=== PATIENT | male | born 1970 | race Caucasian/White ===

== ENCOUNTER 2018-03-19 15:58 | Emergency (ER) | payer OTHER ==
[2018-03-19 16:06] VITALS: BP 122/99
[2018-03-19] MEDS ORDERED: IBUPROFEN 800 MG TABLET PO STA (16:06)
--- NOTE | 2018-03-19 16:13 | ED Physician Documentation ---
PD HPI MAJOR TRAUMA - Stated complaint Stated Complaint: R SIDE PX/FALL - Chief complaint Chief Complaint: Trauma Ch/Bk - History obtained from History obtained from: Patient - History of Present Illness Mechanism of injury: Fell (He had a trip and fall on an unequal sidewalk and rolled to the left and hit his right ribs and also has neck pain although did not hit his neck. The worst spot is the anterior right ribs low down. There is no shortness of breath or head injury.) Review of Systems Constitutional: denies: Fever, Chills Cardiac: denies: Pedal edema, Calf pain Respiratory: denies: Dyspnea, Cough GI: denies: Abdominal Pain PD PAST MEDICAL HISTORY - Present Medications Home Medications: Ambulatory Orders Medication Instructions Recorded Confirmed Ibuprofen [Motrin] 800 mg PO Q8H PRN #30 tablet 03/19/18 Melatonin 5 mg ORAL DAILY PM 03/19/18 03/19/18 - Allergies Allergies/Adverse Reactions: Allergies Allergy/AdvReac Type Severity Reaction Status Date / Time No Known Drug Allergies Allergy Verified 03/19/18 16:05 PD ED PE NORMAL - Vitals Vital signs reviewed: Yes - General General: Alert and oriented X 3, No acute distress - Neck Neck: Supple, no meningeal sign, No bony TTP - Cardiac Cardiac: RRR, No murmur - Respiratory Respiratory: No respiratory distress, Clear bilaterally, Other (Maximal tenderness is around rib 8 anterior axillary line, no bruising.) - Abdomen Abdomen: Soft, Non tender - Extremities Extremities: No deformity, No tenderness to palpate, Normal ROM s pain - Neuro Neuro: Alert and oriented X 3, Normal speech - Psych Psych: Normal mood, Normal affect Results - Vitals Vitals: Vital Signs - 24 hr 03/19/18 16:02 Temperature 36.4 C L Heart Rate 67 Respiratory 18 Rate Blood Pressure 122/99 H O2 Saturation 98 Oxygen O2 Source Room air - Rads (name of study) Cerivcal Spine and R Rib XRs Radiology: EMP read contemporaneously (normal) PD MEDICAL DECISION MAKING - Sepsis Event Vital Signs: Vital Signs - 24 hr 03/19/18 16:02 Temperature 36.4 C L Heart Rate 67 Respiratory 18 Rate Blood Pressure 122/99 H O2 Saturation 98 Oxygen O2 Source Room air Departure - Departure Disposition: 01 Home, Self Care Clinical Impression: Contusion of chest wall Qualifiers: Encounter type: initial encounter Laterality: right Qualified Code(s): S20.211A - Contusion of right front wall of thorax, initial encounter Condition: Good Record reviewed to determine appropriate education?: Yes Instructions: ED Contusion Chest Wall Prescriptions: Ibuprofen [Motrin] 800 mg PO Q8H PRN #30 tablet PRN Reason: PAIN &/OR FEVER Comments: Your blood pressure was elevated today on check into the emergency department. This does not mean that you have hypertension, it is a common phenomenon to come to the emergency department and have elevated blood pressure. I recommend that you see your primary care physician within the week to have it rechecked when you are feeling better.
--- NOTE | 2018-03-19 17:02 | XRAY Report ---
Procedure Date: 03/19/2018 Accession Number: [id number] / [id number] Procedure: XR - Cervical Spine 2 View CPT Code: FULL RESULT: EXAM: CERVICAL SPINE RADIOGRAPHY EXAM DATE: 03/19/2018 04:50 PM. CLINICAL HISTORY: Fall, right rib and neck pain. COMPARISONS: None. TECHNIQUE: 3 views. FINDINGS: Alignment: Normal. No spondylolisthesis or scoliosis. Bones: The cervical vertebral bodies and posterior elements are well visualized from the skull base through C7-T1. No fractures or bone lesions. Disks: Normal. Disk heights are maintained. Facets: No degenerative disease. Soft Tissues: Normal. No prevertebral soft tissue swelling. The visualized lung apices are clear. IMPRESSION: Normal cervical spine radiography. [facility]
--- NOTE | 2018-03-19 17:02 | XRAY Report ---
Procedure Date: 03/19/2018 Accession Number: [id number] / [id number] Procedure: XR - Ribs w/PA Chest RT CPT Code: FULL RESULT: EXAM: RIGHT RIB RADIOGRAPHY EXAM DATE: 03/19/2018 04:50 PM. CLINICAL HISTORY: Fall, right rib and neck pain. COMPARISON: None. TECHNIQUE: 1 view of the chest and 2 views of the ribs. FINDINGS: Bones: Normal. No fracture or bone lesion. Lungs: No focal opacities. No pneumothorax. No pleural effusions. Mediastinum: Heart and mediastinal contours are unremarkable. Other: None. IMPRESSION: Normal chest and rib radiography. [facility]
== END 2018-03-19 17:28 | disposition home or self-care (01) ==
LOC: ED 15:58
DX: S20.211A Contusion of right front wall of thorax, initial encounter (principal); W01.0XXA Fall on same level from slipping, tripping and stumbling without subsequent striking against object, initial encounter
CPT/HCPCS: 71101; 72040; 99283; A9270

== ENCOUNTER 2018-07-01 21:25 | Outpatient (CLI) | payer OTHER | END 2018-07-01 21:26 | disposition critical access hospital (66) | LOC: EMS 21:25 | PROVIDERS: ATTEND Surgery | DX: S06.9X9A Unspecified intracranial injury with loss of consciousness of unspecified duration, initial encounter (principal); W10.8XXA Fall (on) (from) other stairs and steps, initial encounter; Y92.009 Unspecified place in unspecified non-institutional (private) residence as the place of occurrence of the external cause | CPT/HCPCS: A0425; A0427 ==

== ENCOUNTER 2018-07-01 21:44 | Emergency (ER) | payer OTHER ==
[2018-07-01 22:10] LABS: BASOPHILS % (AUTO) 0.4 %; EOSINOPHILS # (AUTO) 0.2 10^3/uL (0.0-0.7); EOSINOPHILS % (AUTO) 3.8 %; HGB - HEMOGLOBIN 14.1 g/dL (14.0-18.0); LYMPHOCYTES # (AUTO) 2.8 10^3/uL (1.5-3.5); LYMPHOCYTES % (AUTO) 43.9 %; MEAN CORPUSCULAR HEMOGLOBIN 30.5 pg (27.0-31.0); MEAN CORPUSCULAR HGB CONC 33.2 g/dL (32.0-36.0); MEAN CORPUSCULAR VOLUME 91.8 fL (80.0-94.0); MEAN PLATELET VOLUME 8.6 fL (7.4-11.4); MONOCYTES # (AUTO) 0.5 10^3/uL (0.0-1.0); MONOCYTES % (AUTO) 7.7 %; NEUTROPHILS # (AUTO) 2.8 10^3/uL (1.5-6.6); NEUTROPHILS % (AUTO) 44.2 %; PLT - PLATELET COUNT 194 10^3/uL (130-450); RED BLOOD COUNT 4.63 10^6/uL (4.70-6.10); RED CELL DISTRIBUTION WIDTH 14.2 % (12.0-15.0); WHITE BLOOD COUNT 6.3 x10^3/uL (4.8-10.8)
[2018-07-01 22:16] LABS: PT - PROTHROMBIN TIME 11.5 secs (9.9-12.6)
[2018-07-01 22:23] LABS: ALBUMIN 4.2 g/dL (3.2-5.5); ALBUMIN/GLOBULIN RATIO 1.3 (1.0-2.2); BILIRUBIN,TOTAL 0.7 mg/dL (0.2-1.0); CALCIUM 8.7 mg/dL (8.5-10.3); CREATININE 0.8 mg/dL (0.6-1.2); TOTAL PROTEIN 7.4 g/dL (6.7-8.2)
[2018-07-01 22:27] LABS: TROPONIN I < 0.04 ng/mL (<0.49)
[2018-07-01 22:29] LABS: CREATINE KINASE MB 7.6 ng/mL (0.6-6.3)
--- NOTE | 2018-07-01 22:34 | ED Physician Documentation ---
PD HPI HEAD INJURY - Stated complaint Stated Complaint: ETOH, FELL, LOC, CPR BY BYSTANDER - Chief complaint Chief Complaint: Trauma Hd/Nk - History obtained from History obtained from: Patient, Family, EMS - History of Present Illness Mechanism of head injury: Fell Where head injury occurred: Home Timing - onset: Today Location of injury: Right, Back Quality of pain: Pain, Throbbing, Aching Associated symptoms: LOC (up to 10 minutes), AMS, Amnesia. No: Nausea / vomiting, Neck pain, Paresthesias, Seizures, Ear drainage, Nasal drainage Symptoms improve with: Rest Symptoms worsen with: Palpation, Movement Contributing factors: Intoxicated. No: Anticoagulated Similar symptoms before: Has not had sx before Recently seen: Not recently seen - Additional information Additional information: Previously well 48-year-old male who drinks usually on Friday nights does not have to work tomorrow and he was drinking this evening. His states that he drinks fairly heavily when he drinks he will have an altered level of consciousness. She states that she was with him in their 7-year-old room and he left to go to the bathroom and then he walked outside. She states that shortly after that her 8-year-old son came inside stating that his father had fallen and she came out to see him unconscious. She was able to palpate a faint carotid pulse and she was not able to wake him up. A neighbor came over and started CPR. He got about 30 compressions in and went to give a rescue breath and the patient blew back in his face. He became awake and animated. The patient has not had any repetitive amnesia in route to the hospital. He does have poor eye contact and minimal interaction. His indicates that this is typical for him when he is intoxicated. Review of Systems Constitutional: denies: Fever Eyes: denies: Decreased vision Ears: denies: Ear pain Nose: denies: Rhinorrhea / runny nose, Congestion Throat: denies: Sore throat Cardiac: denies: Chest pain / pressure, Palpitations Respiratory: denies: Dyspnea, Cough GI: denies: Abdominal Pain, Nausea, Vomiting : denies: Dysuria, Frequency Skin: denies: Rash Musculoskeletal: reports: Extremity pain. denies: Neck pain, Back pain Neurologic: reports: Confused, Altered mental status, Head injury, LOC. denies: Generalized weakness, Focal weakness, Numbness, Difficulty speaking PD PAST MEDICAL HISTORY - Past Surgical History Past Surgical History: Yes Ortho: Spine surgery - Present Medications Home Medications: Ambulatory Orders Medication Instructions Recorded Confirmed Ibuprofen [Motrin] 800 mg PO Q8H PRN #30 tablet 03/19/18 07/01/18 Melatonin 5 mg ORAL DAILY PM 03/19/18 07/01/18 - Allergies Allergies/Adverse Reactions: Allergies Allergy/AdvReac Type Severity Reaction Status Date / Time No Known Drug Allergies Allergy Verified 03/19/18 16:05 - Social History Does the pt smoke?: Yes Smoking Status: Current every day smoker Does the pt drink ETOH?: Yes Does the pt have substance abuse?: No - Immunizations Immunizations are current?: Yes - POLST Patient has POLST: No PD ED PE NORMAL - Vitals Vital signs reviewed: Yes (diastolic hypertension mild ) - General General: No acute distress, Well developed/nourished, Other (The patient is interactive, makes poor eye contact and does not offer more. 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, No motor deficit, No sensory deficit, Normal speech Eye Opening: Spontaneous Motor: Obeys Commands Verbal: Confused GCS Score: 14 - Psych Psych: Other (affect is flat mood is tearful ) Results - Vitals Vitals: Vital Signs - 24 hr 07/01/18 07/01/18 07/01/18 21:49 22:52 23:10 Temperature 36 C L Heart Rate 86 81 80 Respiratory 23 14 18 Rate Blood Pressure 125/81 H 105/76 102/74 O2 Saturation 100 99 98 07/02/18 00:45 Temperature Heart Rate 78 Respiratory 18 Rate Blood Pressure 94/64 O2 Saturation 96 Oxygen O2 Source Room air - Labs Labs: Laboratory Tests 07/01/18 07/01/18 07/01/18 10:00 10:00 10:00 WBC 6.3 RBC 4.63 L Hgb 14.1 Hct 42.5 MCV 91.8 MCH 30.5 MCHC 33.2 RDW 14.2 Plt Count 194 MPV 8.6 Neut # (Auto) 2.8 Lymph # (Auto) 2.8 [place] # (Auto) 0.5 Eos # (Auto) 0.2 Baso # (Auto) 0.0 Absolute Nucleated RBC 0.01 Nucleated RBC % 0.1 PT 11.5 INR 1.0 Sodium 143 Potassium 3.5 Chloride 103 Carbon Dioxide 27 Anion Gap 13.0 BUN 9 Creatinine 0.8 Estimated GFR (MDRD) 103 Glucose 106 H Calcium 8.7 Total Bilirubin 0.7 AST 35 ALT 50 Alkaline Phosphatase 77 Total Creatine Kinase 333 H CK-MB (CK-2) Troponin I Total Protein 7.4 Albumin 4.2 Globulin 3.2 Albumin/Globulin Ratio 1.3 Lipase 49 Urine Color Urine Clarity Urine pH Ur Specific [place] Urine Protein Urine Glucose (UA) Urine Ketones Urine Occult Blood Urine Nitrite Urine Bilirubin Urine Urobilinogen Ur Leukocyte Esterase Ur Microscopic Review Urine Culture Comments Urine Opiates Screen Ur Oxycodone Screen Urine Methadone Screen Ur Propoxyphene Screen Ur Barbiturates Screen Ur Tricyclics Screen Ur Phencyclidine Scrn Ur Amphetamine Screen U Methamphetamines Scrn U Benzodiazepines Scrn Urine Cocaine Screen U Cannabinoids Screen Ethyl Alcohol 265.2 07/01/18 07/01/18 07/01/18 10:00 23:45 23:45 WBC RBC Hgb Hct MCV MCH MCHC RDW Plt Count MPV Neut # (Auto) Lymph # (Auto) [place] # (Auto) Eos # (Auto) Baso # (Auto) Absolute Nucleated RBC Nucleated RBC % PT INR Sodium Potassium Chloride Carbon Dioxide Anion Gap BUN Creatinine Estimated GFR (MDRD) Glucose Calcium Total Bilirubin AST ALT Alkaline Phosphatase Total Creatine Kinase CK-MB (CK-2) 7.6 H Troponin I < 0.04 Total Protein Albumin Globulin Albumin/Globulin Ratio Lipase Urine Color YELLOW Urine Clarity CLEAR Urine pH 6.0 Ur Specific [place] 1.010 Urine Protein NEGATIVE Urine Glucose (UA) NEGATIVE Urine Ketones NEGATIVE Urine Occult Blood NEGATIVE Urine Nitrite NEGATIVE Urine Bilirubin NEGATIVE Urine Urobilinogen 0.2 (NORMAL) Ur Leukocyte Esterase NEGATIVE Ur Microscopic Review NOT INDICATED Urine Culture Comments NOT INDICATED Urine Opiates Screen NEGATIVE Ur Oxycodone Screen NEGATIVE Urine Methadone Screen NEGATIVE Ur Propoxyphene Screen NEGATIVE Ur Barbiturates Screen NEGATIVE Ur Tricyclics Screen NEGATIVE Ur Phencyclidine Scrn NEGATIVE Ur Amphetamine Screen NEGATIVE U Methamphetamines Scrn NEGATIVE U Benzodiazepines Scrn NEGATIVE Urine Cocaine Screen NEGATIVE U Cannabinoids Screen NEGATIVE Ethyl Alcohol - Rads (name of study) CT head without Radiology: Prelim report reviewed (Impression: 1. Small volume central subarachnoid hemorrhage. 2. Possible small focus of left anterior tentorial subdural hemorrhage. 3. 5 mm left inferior frontal hemorrhagic contusion.), EMP read indepedently, See rad report PD MEDICAL DECISION MAKING - ED course Complexity details: reviewed old records, reviewed results, re-evaluated patient, considered differential, d/w patient, d/w family ED course: 48-year-old male who became intoxicated fell on his porch and sustained a head injury with loss of consciousness has some subtle intracranial hemorrhage. The results of his CT scan and his course are reviewed with the neurosurgeon at [facility] Dr. JERONIMO, and he recommends that the patient be treated conservatively and that a second scan is not necessary. He states the amount of hemorrhage is subtle and does not warrant transfer or repeat scanning. Departure - Departure Disposition: 01 Home, Self Care Clinical Impression: Concussion Qualifiers: Encounter type: initial encounter Loss of consciousness presence/duration: with LOC of 30 min or less Qualified Code(s): S06.0X1A - Concussion with loss of consciousness of 30 minutes or less, initial encounter Traumatic subarachnoid bleed with LOC of 30 minutes or less Qualifiers: Encounter type: initial encounter Qualified Code(s): S06.6X1A - Traumatic subarachnoid hemorrhage with loss of consciousness of 30 minutes or less, initial encounter Condition: Stable Instructions: ED Head Injury Closed Sleep Mon Follow-Up: JESIKA Abreu [Provider Group] Discharge Date/Time: 07/02/18 02:18
--- NOTE | 2018-07-01 22:44 | XRAY Report ---
Reason: r 5th digit deformity Procedure Date: 07/01/2018 Accession Number: [id number] / [id number] Procedure: XR - Hand 3 View RT CPT Code: FULL RESULT: EXAM: RIGHT HAND RADIOGRAPHY EXAM DATE: 07/01/2018 10:01 PM. CLINICAL HISTORY: R 5th digit deformity. COMPARISON: None. TECHNIQUE: 3 views. FINDINGS: Bones: Normal. No fractures or bone lesions. Joints: The joint spaces are intact. There is lateral deviation of the fifth digit at the fifth metacarpal phalangeal joint. There appears to be an old fracture of the distal fifth metacarpal. Soft Tissues: Normal. No soft tissue swelling. IMPRESSION: 1. Probable old healed fracture of the distal fifth metacarpal. [facility]
--- NOTE | 2018-07-01 22:45 | XRAY Report ---
Reason: chest pain Procedure Date: 07/01/2018 Accession Number: [id number] / [id number] Procedure: XR - Chest 1 View X-Ray CPT Code: 35175 FULL RESULT: EXAM: CHEST RADIOGRAPHY EXAM DATE: 07/01/2018 10:00 PM. CLINICAL HISTORY: Chest pain. COMPARISON: RIBS W/PA CHEST RT 03/19/2018 4:33 PM. TECHNIQUE: 1 view. FINDINGS: Lungs/Pleura: No focal opacities evident. No pleural effusion. No pneumothorax. Mediastinum: Within exam limitations, the cardiomediastinal contour is normal. Other: None. IMPRESSION: Normal single view chest. [facility]
--- NOTE | 2018-07-01 23:13 | CT Report ---
Reason: head injury LOC Procedure Date: 07/01/2018 Accession Number: [id number] / [id number] Procedure: CT - Head W/O CPT Code: FULL RESULT: EXAM: CT HEAD EXAM DATE: 07/01/2018 10:27 PM. CLINICAL HISTORY: Head injury LOC. COMPARISON: Brain MRI 01/26/2011. TECHNIQUE: Multiaxial CT images were obtained from the foramen magnum to the vertex. Reformats: Sagittal and coronal. IV contrast: None. In accordance with CT protocol optimization, one or more of the following dose reduction techniques were utilized for this exam: automated exposure control, adjustment of mA and/or KV based on patient size, or use of iterative reconstructive technique. FINDINGS: Parenchyma: 5 mm focus of left inferior frontal hemorrhage. No evidence of mass, midline shift, or CT findings of infarction. Mckeon-white differentiation is distinct. Extraaxial Spaces: Small volume high density in the suprasellar region and left medial sylvian fissure. Ventricles: Normal in size and position. Sinuses and Orbits: Imaged paranasal sinuses, orbits, and mastoids show no significant abnormality. Bones: No evidence of fracture or calvarial defect. Other: There is a 5.1 cm right parietal scalp hematoma.. IMPRESSION: 1. Small volume central subarachnoid hemorrhage. 2. Possible small focus of left anterior tentorial subdural hemorrhage. 3. 5 mm left inferior frontal hemorrhagic contusion. [facility] The above findings were discussed with Dr. Smith by Dr. Geoffrey Larios at 23:10 hrs on 07/01/18.
--- NOTE | 2018-07-01 23:15 | CT Report ---
Reason: head injury LOC Procedure Date: 07/01/2018 Accession Number: [id number] / [id number] Procedure: CT - Cervical Spine W/O CPT Code: FULL RESULT: EXAM: CT CERVICAL SPINE WITHOUT CONTRAST DATE: 07/01/2018 10:20 PM. HISTORY: Head injury, scalp contusion, loss of consciousness COMPARISONS: None. TECHNIQUE: Thin-section axial images were acquired of the cervical spine without contrast. Post-processing: Coronal and sagittal reformats. Other: None. In accordance with CT protocol optimization, one or more of the following dose reduction techniques were utilized for this exam: automated exposure control, adjustment of mA and/or KV based on patient size, or use of iterative reconstructive technique. FINDINGS: Alignment: No scoliosis or spondylolisthesis. Bones: No fracture or bone lesion. Interspace Levels/Facets: No significant central canal or neural foraminal narrowing. Musculature: Normal. No fatty atrophy. Other: The paravertebral and prevertebral soft tissues are unremarkable. The lung apices are clear. IMPRESSION: No evidence of cervical spine fracture. [facility]
[2018-07-02] LABS: MUDS CUTOFF CONCENTRATIONS CUTOFF CONC BELOW:
[2018-07-02 00:07] LABS: BILIRUBIN,URINE NEGATIVE (NEGATIVE); GLUCOSE, URINE (UA) NEGATIVE (NEGATIVE); KETONES,URINE (UA) NEGATIVE (NEGATIVE); LEUKOCYTE ESTERASE, URINE NEGATIVE (NEGATIVE); NITRITE,URINE NEGATIVE (NEGATIVE); OCCULT BLOOD,URINE NEGATIVE (NEGATIVE); PROTEIN,URINE NEGATIVE (NEGATIVE); UROBILINOGEN,URINE 0.2 (NORMAL) E.U./dL (NORMAL)
[2018-07-02 00:08] LABS: CLARITY,URINE CLEAR (CLEAR)
[2018-07-02 00:15] LABS: AMPHETAMINE SCREEN,URINE NEGATIVE (NEGATIVE); BENZODIAZEPINES SCREEN, URINE NEGATIVE (NEGATIVE); COCAINE SCREEN URINE NEGATIVE (NEGATIVE); METHADONE SCREEN, URINE NEGATIVE (NEGATIVE); METHAMPHETAMINES SCREEN, URINE NEGATIVE (NEGATIVE); OPIATE SCREEN, URINE NEGATIVE (NEGATIVE); OXYCODONE SCREEN, URINE NEGATIVE (NEGATIVE); PROPOXYPHENE SCREEN, URINE NEGATIVE (NEGATIVE); TRICYCLIC ANTIDEPRESSANT,URINE NEGATIVE (NEGATIVE)
[2018-07-02 00:46] VITALS: BP 94/64
== END 2018-07-02 02:18 | disposition home or self-care (01) ==
LOC: EDUNIT# → ED 21:44
DX: S06.6X1A Traumatic subarachnoid hemorrhage with loss of consciousness of 30 minutes or less, initial encounter (principal); S00.03XA Contusion of scalp, initial encounter; W18.30XA Fall on same level, unspecified, initial encounter; Y92.008 Other place in unspecified non-institutional (private) residence as the place of occurrence of the external cause; F10.129 Alcohol abuse with intoxication, unspecified; F17.200 Nicotine dependence, unspecified, uncomplicated
CPT/HCPCS: 36415; 70450; 71045; 72125; 80053; 80306; 80320; 81001; 81003; 82550; 82553; 83690; 84484; 85025; 85610; 87086; 93005; 99284

== ENCOUNTER 2018-07-02 14:08 | Emergency (ER) | payer OTHER ==
[2018-07-02] MEDS ORDERED: HYDROcod/ACETAM 5/325 MG TABLET PO STA (14:38)
--- NOTE | 2018-07-02 14:38 | ED Physician Documentation ---
PD HPI ALTERED MENTAL STATUS - Stated complaint Stated Complaint: Head injury - Chief complaint Chief Complaint: Neuro - History obtained from History obtained from: Patient, Family () - History of Present Illness Timing - onset: Last night (He was intoxicated last night and fell. He was seen here. He had a very small subarachnoid hemorrhage and hemorrhagic contusion. Dr. Smith consulted [facility] who felt that repeat scanning was not necessary. The 's understanding though was that the patient's left AMA and did need a repeat scan. He is not worse but is not better. He still has headaches and dizziness when he stands up. No drinking today.) Review of Systems Constitutional: reports: Reviewed and negative Nose: reports: Reviewed and negative Cardiac: reports: Reviewed and negative Respiratory: reports: Reviewed and negative PD PAST MEDICAL HISTORY - Past Surgical History Past Surgical History: Yes Ortho: Spine surgery - Present Medications Home Medications: Ambulatory Orders Medication Instructions Recorded Confirmed Ibuprofen [Motrin] 800 mg PO Q8H PRN #30 tablet 03/19/18 07/01/18 Melatonin 5 mg ORAL DAILY PM 03/19/18 07/01/18 Hydrocodone/Acetaminophen 1 - 2 each PO Q6H PRN #10 tablet 07/02/18 [Hydrocodon-Acetaminophen 5-325] - Allergies Allergies/Adverse Reactions: Allergies Allergy/AdvReac Type Severity Reaction Status Date / Time No Known Drug Allergies Allergy Verified 07/02/18 14:17 - Social History Does the pt smoke?: Yes Smoking Status: Current every day smoker Does the pt drink ETOH?: Yes Does the pt have substance abuse?: No - Immunizations Immunizations are current?: Yes - POLST Patient has POLST: No PD ED PE NORMAL - Vitals Vital signs reviewed: Yes - General General: Alert and oriented X 3, No acute distress - HEENT HEENT: PERRL, EOMI, Ears normal, Moist mucous membranes, Pharynx benign - Neck Neck: Supple, no meningeal sign, No bony TTP - Neuro Neuro: Alert and oriented X 3, quality assurance 2-12 intact Eye Opening: Spontaneous Motor: Obeys Commands Verbal: Oriented GCS Score: 15 - Psych Psych: Normal mood, Normal affect Results - Vitals Vitals: Vital Signs - 24 hr 07/02/18 07/02/18 07/02/18 14:14 15:00 15:30 Temperature 36.9 C Heart Rate 69 64 64 Respiratory 18 16 Rate Blood Pressure 127/88 H 123/79 120/86 H O2 Saturation 100 99 100 07/02/18 07/02/18 07/02/18 16:00 17:54 18:30 Temperature Heart Rate 62 63 59 L Respiratory 15 16 Rate Blood Pressure 121/74 115/80 112/73 O2 Saturation 100 100 99 07/02/18 20:05 Temperature Heart Rate 61 Respiratory 16 Rate Blood Pressure 117/74 O2 Saturation 99 Oxygen O2 Source Room air - Rads (name of study) CT Headt Radiology: EMP read contemporaneously (1. Slightly larger or better visualized left frontal parenchymal hemorrhage compared to 07/01/2018. 2. Small volume of subarachnoid hemorrhage noted along the suprasellar region and left medial sylvian fissure is less prominent. 3. Probable very small left tentorial subdural hematoma better visualized compared to 07/01/2018.) CT Head #2 (7pm) Radiology: EMP read contemporaneously (Interval evolution of small multifocal anterinferior left frontal intraparenchymal hematoma with surrounding edema, slightly increased. Possible trace subdural hematoma along the left tentorium, unchanged.) PD MEDICAL DECISION MAKING - ED course ED course: 48-year-old gentleman with closed head injury with known small amount of subarachnoid and intraparenchymal blood from last night returns at the 's behest with persistent symptoms but not worsening either. His exam is normal and stable head CT shows may be slight worsening of his Frontal hemorrhagic contusion and a tiny tentorial subdural. Images were sent back to [facility] in case discussed by phone with Dr. Heaton (?sp) Reviewed both the new scan and the previous scan and recommended a third CT in approximately 4 hours after the second CT to confirm stability. After the third CT at 7 PM, it looked a little worse to me but it was sent to [facility] again and I spoke with the same neurosurgeon and says it was stable and he can be discharged. Departure - Departure Disposition: 01 Home, Self Care Clinical Impression: Traumatic subarachnoid bleed with LOC of 30 minutes or less Qualifiers: Encounter type: initial encounter Qualified Code(s): S06.6X1A - Traumatic subarachnoid hemorrhage with loss of consciousness of 30 minutes or less, initial encounter Concussion Qualifiers: Encounter type: initial encounter Loss of consciousness presence/duration: with LOC of 30 min or less Qualified Code(s): S06.0X1A - Concussion with loss of consciousness of 30 minutes or less, initial encounter Condition: Good Record reviewed to determine appropriate education?: Yes Instructions: ED Head Injury Closed Sleep Mon Prescriptions: Hydrocodone/Acetaminophen [Hydrocodon-Acetaminophen 5-325] 1 - 2 each PO Q6H PRN #10 tablet PRN Reason: pain Comments: Tylenol as needed for pain, discontinue ibuprofen or any nonsteroidal anti- inflammatory drug such as Motrin, Aleve, naproxen,
--- NOTE | 2018-07-02 15:10 | CT Report ---
Reason: head injury followup Procedure Date: 07/02/2018 Accession Number: [id number] / [id number] Procedure: CT - Head W/O CPT Code: FULL RESULT: EXAM: CT HEAD EXAM DATE: 07/02/2018 02:46 PM. CLINICAL HISTORY: Head injury. Follow-up. COMPARISON: 07/01/2018. TECHNIQUE: Multiaxial CT images were obtained from the foramen magnum to the vertex. Reformats: Sagittal and coronal. IV contrast: None. In accordance with CT protocol optimization, one or more of the following dose reduction techniques were utilized for this exam: automated exposure control, adjustment of mA and/or KV based on patient size, or use of iterative reconstructive technique. FINDINGS: Parenchyma: Left inferior frontal lobe focus of parenchymal hemorrhage is again seen measuring up to 11-12 mm and is either slightly larger or better visualized. Surrounding edema noted. In addition, there appears to be high density along the left tentorium anteriorly better visualized. The high density along the suprasellar region and medial left sylvian fissure is less prominent. Extraaxial Spaces: High density along the left tentorium possibly small subdural blood products better visualized compared to 07/01/2018. No midline shift. No mass-effect. Ventricles: Normal in size and position. Sinuses and Orbits: Air-fluid level within the right maxillary sinus and sphenoid sinus. Mild bilateral ethmoid sinus disease. Mastoid air cells are clear. Bones: No evidence of fracture or calvarial defect. Other: Globes and orbits are unremarkable. Right parietal scalp edema and hematoma have evolved in the interval. IMPRESSION: 1. Slightly larger or better visualized left frontal parenchymal hemorrhage compared to 07/01/2018. 2. Small volume of subarachnoid hemorrhage noted along the suprasellar region and left medial sylvian fissure is less prominent. 3. Probable very small left tentorial subdural hematoma better visualized compared to 07/01/2018. [facility]
--- NOTE | 2018-07-02 19:46 | CT Report ---
Reason: followup small ich per [facility] [place] Procedure Date: 07/02/2018 Accession Number: [id number] / [id number] Procedure: CT - Head W/O CPT Code: FULL RESULT: EXAM: CT HEAD EXAM DATE: 07/02/2018 07:10 PM. CLINICAL HISTORY: Follow-up small intracranial hemorrhage. COMPARISON: HEAD W/O 07/02/2018 2:41 PM HEAD W/O 07/01/2018 10:17 PM. TECHNIQUE: Multiaxial CT images were obtained from the foramen magnum to the vertex. Reformats: Sagittal and coronal. IV contrast: None. In accordance with CT protocol optimization, one or more of the following dose reduction techniques were utilized for this exam: automated exposure control, adjustment of mA and/or KV based on patient size, or use of iterative reconstructive technique. FINDINGS: Parenchyma: Interval evolution of small multifocal anteroinferior left frontal intraparenchymal hematoma with surrounding edema, with overall stable size of the involved area and slightly increased size of the largest hyperattenuating component which now measures 12 x 10 x 9 mm (axial image 13, coronal image 8) compared to previous 9 x 7 x 7 mm (remeasured). No evidence of mass-effect. Mckeon-white matter differentiation is distinct. Extraaxial Spaces: Unchanged subtle hyperattenuation along the left tentorium, possibly representing trace subdural hematoma. Previously described subarachnoid hemorrhage in the suprasellar region and along the left sylvian fissure not appreciable. Ventricles: The ventricles and basal cisterns are patent. No hydrocephalus or midline shift. Sinuses and Orbits: Unchanged small volume layering low-attenuation fluid in the right maxillary and the sphenoid sinuses, and mild patchy mucosal thickening in the right ethmoid air cells. The mastoid air cells are clear. Bones: No evidence of calvarial fracture or defect. Other: Right parietal superficial soft tissue hematoma with underlying subgaleal scalp hematoma. IMPRESSION: 1. Interval evolution of small multifocal anteroinferior left frontal intraparenchymal hematoma with surrounding edema, with overall stable size of the involved area and slightly increased size of the largest hyperattenuating component. 2. Possible trace subdural hematoma along the left tentorium, unchanged. RADIA
[2018-07-02 20:05] VITALS: BP 117/74
[2018-07-02] MEDS ORDERED: HYDROcod/ACET 5/325 Prepack 4 PO STA (20:21)
== END 2018-07-02 20:30 | disposition home or self-care (01) ==
LOC: ED 14:08
DX: S06.6X1A Traumatic subarachnoid hemorrhage with loss of consciousness of 30 minutes or less, initial encounter (principal); F17.200 Nicotine dependence, unspecified, uncomplicated
CPT/HCPCS: 70450; 99284; A9270

== ENCOUNTER 2019-09-11 07:57 | Outpatient (CLI) | payer OTHER ==
--- NOTE | 2019-09-11 10:18 | MRI Report ---
Reason: RADICULOPATHY LUMBOSACRAL REGION Procedure Date: 09/11/2019 Accession Number: [id number] / [id number] Procedure: MRI - Lumbar Spine W/O CPT Code: Final Report FULL RESULT: EXAM: MRI LUMBAR SPINE WITHOUT CONTRAST EXAM DATE: 09/11/2019 08:45 AM. CLINICAL HISTORY: Radiculopathy lumbosacral region. COMPARISON: LUMBAR SPINE 07/11/2009 8:37 AM. TECHNIQUE: Multiplanar, multisequence T1-weighted and fluid-sensitive sequences of the lumbar spine from T12 to S1 without contrast. Other: None. FINDINGS: Spinal Canal: The conus terminates at L1. The conus medullaris and cauda equina are unremarkable. Alignment: No scoliosis or spondylolisthesis. Bone Marrow: Five thu-xpg-jtxhssg lumbar vertebral bodies are assumed. No gross fractures or bone lesions. No bone marrow replacement. Disk Levels/Facets: T12-L1: Unremarkable. L1-L2: Unremarkable. L2-L3: Unremarkable. L3-L4: Mild disk bulge, increased from prior. Mild bilateral facet arthropathy is stable. There is increased mild bilateral foraminal stenoses since prior but no central canal stenosis. L4-L5: Again seen is previous right laminectomy and disk resection. Interval progression of moderate disk narrowing. The previous left paracentral disk protrusion has decreased in size with a more diffuse mild to moderate disk bulge. No significant nerve root retrodisplacement. No central canal stenosis. Mild bilateral facet arthropathy. L5-S1: Unremarkable. Musculature: Normal. No edema or fatty atrophy. Other: The partially visualized retroperitoneum is unremarkable. IMPRESSION: 1. Previous left paracentral disk protrusion has decreased in size with decreasing mass effect on the left L5 nerve root. 2. Progressive disk height loss of L4-L5 with disk bulge and facet arthropathy but no increased central canal stenosis. Stable foraminal stenoses at this level. 3. Mild increase in bilateral L3-L4 foraminal stenoses from progression of a mild disk bulge. Comment: The following findings are so common in adults without low back pain that while we report their presence, they must be interpreted with caution and in the context of the clinical situation. (Reference Adorek et al, Spine 2001) Prevalence of findings in patients without low back pain: Disk degeneration (any evidence): 92% Disk desiccation/T2 signal loss: 83% Disk height loss: 56% Disk bulge: 64% Disk protrusion: 32% Annular tear/high intensity zone: 38% RADIA
== END 2019-09-11 07:58 | disposition home or self-care (01) ==
LOC: DI 07:57
PROVIDERS: ATTEND Student in an Organized Health Care Education/Training Program
DX: M51.16 Intervertebral disc disorders with radiculopathy, lumbar region (principal)
CPT/HCPCS: 72148

== ENCOUNTER 2023-04-06 09:56 | Emergency (ER) | payer OTHER ==
[2023-04-06 10:10] VITALS: BP 109/79; O2SAT 98
--- NOTE | 2023-04-06 11:16 | ED Physician Documentation ---
History of Present Illness - Stated complaint Stated Complaint: BACK PX - Chief complaint Chief Complaint: General - History obtained from History obtained from: Patient - Additonal information Additional information: 52-year-old gentleman with history of chronic recurrent back pain. Has had 2 surgeries in the past, 1 a discectomy and 1 sounds like more of. Foraminectomy both in the remote past. He has had increasing back pain over the last days to weeks. It started when he was helping get a dryer up the stairs. Pain is around L3 and radiates into the left hip. He denies weakness, numbness, tingling, saddle anesthesia, incontinence, or fevers. He has tried ibuprofen and a pain cream with partial relief. PD PAST MEDICAL HISTORY - Past Surgical History Past Surgical History: Yes Ortho: Spine surgery - Present Medications Home Medications: Ambulatory Orders Medication Instructions Recorded Confirmed Ibuprofen [Motrin] 800 mg PO Q8H PRN #30 tablet 03/19/18 07/01/18 Melatonin 5 mg ORAL DAILY PM 03/19/18 07/01/18 Hydrocodone/Acetaminophen 1 - 2 each PO Q6H PRN #10 tablet 07/02/18 [Hydrocodon-Acetaminophen 5-325] Cyclobenzaprine [Flexeril] 10 mg PO TID PRN #20 tablet 04/06/23 HYDROcod/ACETAM 5/325 [[place] 5/325] 1 - 2 tab PO Q6H PRN #15 tablet 04/06/23 predniSONE [Deltasone] 20 mg PO [id number] #21 tab 04/06/23 - Allergies Allergies/Adverse Reactions: Allergies Allergy/AdvReac Type Severity Reaction Status Date / Time No Known Drug Allergies Allergy Verified 04/06/23 10:08 - Social History Does the pt smoke?: Yes Smoking Status: Current every day smoker Does the pt drink ETOH?: Yes Does the pt have substance abuse?: No - Immunizations Immunizations are current?: Yes - POLST Patient has POLST: No PD ED PE NORMAL - Vitals Vital signs reviewed: Yes - General General: Alert and oriented X 3, Other (Comfortable at rest, winces slightly with position changes) - Back Back: No spinal TTP - Extremities Extremities: Other (The patient has equal and normal Achilles and patellar reflexes bilaterally. Normal sensation in all areas of the legs. Patient denies saddle anesthesia. Normal strength in flexion-extension at the ankles, knees, and flexion of the hips.) - Neuro Neuro: Alert and oriented X 3 Results - Vitals Vitals: Vital Signs - 24 hr 04/06/23 10:05 Temperature 37.0 C Heart Rate 66 Respiratory 15 Rate Blood Pressure 109/79 O2 Saturation 98 Oxygen O2 Source Room air PD Medical Decision Making - ED course ED course: This patient has seemingly uncomplicated musculoskeletal back pain. The patient has no "red flags." Specifically denies IV drug use, fevers, incontinence, saddle anesthesia. Spinal epidural abscess was considered, given that the patient has no fever, is not diabetic, has no spinal tenderness, does not use IV drugs, and has no bilateral neurologic symptoms, the diagnosis of spinal epidural abscess is considered exceedingly unlikely. Departure - Departure Disposition: 01 Home, Self Care Clinical Impression: Lumbago Qualifiers: Chronicity: acute Back pain laterality: left Sciatica presence: without sciatica Qualified Code(s): M54.50 - Low back pain, unspecified Condition: Good Record reviewed to determine appropriate education?: Yes Instructions: ED Sprain Strain Lumbar Prescriptions: predniSONE [Deltasone] 20 mg PO [id number] #21 tab Cyclobenzaprine [Flexeril] 10 mg PO TID PRN #20 tablet PRN Reason: Spasms HYDROcod/ACETAM 5/325 [[place] 5/325] 1 - 2 tab PO Q6H PRN #15 tablet PRN Reason: Pain Comments: I sent your prescriptions electronically to the [facility] in [place]. Keep the appointment with your PCM on the sixth. Return for new or worsening symptoms. I am prescribing a short course of narcotic pain medication for you. These are potentially dangerous and addictive medications that should be used carefully. These medications may constipate you. Take an ohsa-fyj-ymvmrhe stool softener (docusate) twice daily with plenty of water while taking these medications. If you go 24 hours without a bowel movement, take srwz-sma-xliyxco miralax, per package instructions. Do not drink or drive while taking these medications. If you received narcotic or sedating medications while in the emergency department, do not drive for 24 hours. Store this medication in a safe, secure place and out of reach of children. It is a violation of federal law to give or sell this medication to another per son or to use in a manner other than prescribed. The ED will not refill narcotic prescriptions, including prescriptions lost or stolen. To dispose of unwanted medications: 1. [facility] provides a drop box for medication in pill form only (no liquids) 8:00 am to 4:30 p.m. Friday-Friday in the lobby of the [facility], [address] Empty pills into ziplock bag before disposal. Call [phone] for information. 2.[employer] is a free service available to all [facility] residents. Go to [email or web address] Note that many narcotic pain relievers also contain Tylenol/acetaminophen. Please ensure that your total dose of acetaminophen from all sources does not exceed 3 g (3000 mg) per day.
== END 2023-04-06 11:21 | disposition home or self-care (01) ==
LOC: ED 09:56
DX: M54.50 Low back pain, unspecified (principal); F17.200 Nicotine dependence, unspecified, uncomplicated
CPT/HCPCS: 99282; 99283

== ENCOUNTER 2023-05-24 08:00 | Outpatient (CLI) | payer OTHER ==
--- NOTE | 2023-05-26 11:00 | MRI Report ---
PROCEDURE: MRI lumbar spine without contrast INDICATIONS: LOW BACK PAIN TECHNIQUE: Multiplanar multisequential MRI images of the lumbar spine were obtained without intraven ous contrast. COMPARISON: 09/11/2019 FINDINGS: Alignment and Curvature: There is normal bony alignment. Bone Marrow: Mild chronic degenerative endplate changes at L4-5.Transitional anatomy is present. The re is partial sacralization of L5 vertebral body and hypoplastic ribs associated with T12. Numbering convention is consistent with the prior exam Spinal Cord: Conus medullaris terminates at the L1 level. Visualized cord demonstrates normal signa l and size. Paraspinal Soft Tissues: Unremarkable perivertebral soft tissues. T12-L1: Normal in appearance. L1-L2: Normal in appearance. L2-L3: Normal in appearance. L3-L4: Disc spaces preserved. Mild disc bulge and facet arthropathy without central or foraminal st enosis L4-L5: Disc space narrowing with circumferential disc bulge and superimposed focal small left subar ticular disc protrusion effaces the left lateral recess . No central stenosis. Hypertrophic facet kita nts contributing moderate bilateral foraminal stenosis, left greater than right. L5-S1: Normal in appearance. IMPRESSION: Multilevel degenerative disc disease and arthropathy results in varying degrees of central and forami nal stenosis including left subarticular disc protrusion at L4-5, slightly increased from the prior e xam Reviewed by: Kal Grimaldo MD on 05/26/2023 9:58 AM ADELA Approved by: Kal Grimaldo MD on 05/26/2023 9:58 AM ADELA Station ID: [id number]
== END 2023-05-24 08:01 | disposition home or self-care (01) ==
LOC: DI 08:00
DX: M51.26 Other intervertebral disc displacement, lumbar region (principal); M51.36 Other intervertebral disc degeneration, lumbar region; M48.061 Spinal stenosis, lumbar region without neurogenic claudication; M47.816 Spondylosis without myelopathy or radiculopathy, lumbar region